=== PATIENT | female | born 1995 | race Hispanic/Latino ===

== ENCOUNTER 2017-10-15 16:23 | Emergency (ER) | payer OTHER, SELFPAY ==
[2017-10-16] MEDS ORDERED: METAL LOCK LOOP XX ×2 (20:48)
== END 2017-10-15 17:30 | disposition home or self-care (01) ==
LOC: M ED 17:30
DX: F32.9 Major depressive disorder, single episode, unspecified (principal); F43.9 Reaction to severe stress, unspecified; Z87.891 Personal history of nicotine dependence
CPT/HCPCS: 99284